=== PATIENT | female | born 1995 | race Caucasian/White ===

== ENCOUNTER 2020-02-10 21:41 | Emergency (ER) | payer OTHER ==
[~2020-02-10] VITALS: Ht 149.9 cm; Wt 64.4 kg
[2020-02-10] MEDS ORDERED: PRENATAL TABLE1 EAC2 (22:09)
== END 2020-02-11 05:18 | disposition home or self-care (01) ==
LOC: ER 21:41
DX: O20.8 Other hemorrhage in early pregnancy (principal); Z3A.01 Less than 8 weeks gestation of pregnancy

== ENCOUNTER 2020-07-26 09:48 | Outpatient (CLI) | payer OTHER ==
[~2020-07-26 09:48] MED LIST: PRENATAL TABLE1 EAC2
== END 2020-07-26 10:27 | disposition home or self-care (01) ==
LOC: NST 09:48
PROVIDERS: ATTEND Obstetrics & Gynecology Maternal & Fetal Medicine
DX: Z34.83 Encounter for supervision of other normal pregnancy, third trimester (principal)

== ENCOUNTER 2020-08-16 12:49 | Outpatient (CLI) | payer OTHER | END 2020-08-16 13:39 | disposition home or self-care (01) | LOC: NST 12:49 | PROVIDERS: ATTEND Obstetrics & Gynecology Maternal & Fetal Medicine | DX: Z34.82 Encounter for supervision of other normal pregnancy, second trimester (principal) ==

== ENCOUNTER 2020-08-21 16:02 | Outpatient (CLI) | payer OTHER | END 2020-08-21 16:45 | disposition home or self-care (01) | LOC: NST 16:02 | PROVIDERS: ATTEND Obstetrics & Gynecology Maternal & Fetal Medicine | DX: Z34.83 Encounter for supervision of other normal pregnancy, third trimester (principal) ==

== ENCOUNTER 2020-08-24 10:37 | Outpatient (CLI) | payer OTHER | END 2020-08-24 10:40 | disposition home or self-care (01) | LOC: NST 10:37 | PROVIDERS: ATTEND Obstetrics & Gynecology Maternal & Fetal Medicine | DX: Z34.82 Encounter for supervision of other normal pregnancy, second trimester (principal) ==

== ENCOUNTER 2020-08-27 09:04 | Outpatient (CLI) | payer OTHER | END 2020-08-27 09:46 | disposition home or self-care (01) | LOC: NST 09:04 | PROVIDERS: ATTEND Obstetrics & Gynecology Maternal & Fetal Medicine | DX: Z34.03 Encounter for supervision of normal first pregnancy, third trimester (principal) ==

== ENCOUNTER 2020-08-30 09:24 | Outpatient (CLI) | payer OTHER | END 2020-08-30 10:07 | disposition home or self-care (01) | LOC: NST 09:24 | PROVIDERS: ATTEND Obstetrics & Gynecology Maternal & Fetal Medicine | DX: Z34.83 Encounter for supervision of other normal pregnancy, third trimester (principal) ==

== ENCOUNTER 2020-09-02 09:42 | Outpatient (CLI) | payer OTHER | END 2020-09-02 11:02 | disposition home or self-care (01) | LOC: NST 09:42 | PROVIDERS: ATTEND Obstetrics & Gynecology Maternal & Fetal Medicine | DX: Z34.03 Encounter for supervision of normal first pregnancy, third trimester (principal) ==

== ENCOUNTER 2020-09-02 11:15 | Inpatient (IN) | payer OTHER ==
[~2020-09-02] VITALS: Ht 149.9 cm; Wt 2.3 kg
[2020-09-04] MEDS ORDERED: INTEGRA F CAPS1 EAC1 (11:14)
== END 2020-09-10 12:36 | disposition home or self-care (01) | DRG 788 ==
LOC: ADM 11:15 → EDSTATUS 11:15 → SURH 09-04 07:00 → O/R 09-04 08:41 → OB/GYN 09-04 08:41 → SURH 09-04 11:15 → OB/GYN 09-04 12:13
PROVIDERS: ADMIT Obstetrics & Gynecology Maternal & Fetal Medicine; ATTEND Obstetrics & Gynecology Maternal & Fetal Medicine
PROC: 4A1HXFZ Monitoring of Products of Conception, Cardiac Rhythm, External Approach (ICD-10-PCS; 2020-09-04)
PROC: 10D00Z1 Extraction of Products of Conception, Low, Open Approach (ICD-10-PCS; principal; 2020-09-04 07:00)
DX: O65.5 Obstructed labor due to abnormality of maternal pelvic organs (principal); O34.593 Maternal care for other abnormalities of gravid uterus, third trimester; Z3A.37 37 weeks gestation of pregnancy; Z37.0 Single live birth; Z20.822 Contact with and (suspected) exposure to COVID-19

== ENCOUNTER 2021-07-11 19:29 | Emergency (ER) | payer OTHER ==
[~2021-07-11] VITALS: Ht 149.9 cm; Wt 64.0 kg
[~2021-07-11 19:29] MED LIST changes: +INTEGRA F CAPS1 EAC1
== END 2021-07-11 23:00 | disposition home or self-care (01) ==
LOC: ER 19:29
DX: D25.9 Leiomyoma of uterus, unspecified (principal); R10.9 Unspecified abdominal pain

== ENCOUNTER 2021-08-04 07:30 | Inpatient (IN) | payer OTHER ==
[~2021-08-04] VITALS: Ht 149.9 cm; Wt 59.0 kg
[2021-08-04] MEDS ORDERED: FOLIC ACID20 MG PO (09:52)
[2021-08-04] MEDS ORDERED: IRON325 MG PO (09:52)
[2021-08-04] MEDS ORDERED: VITAMIN C500 M6 PO (09:52)
== END 2021-08-23 11:14 | disposition home or self-care (01) | DRG 743 ==
LOC: SURH 08-06 07:30 → O/R 08-20 08:50 → OB/GYN 08-20 08:50 → SURH 08-20 14:30 → OB/GYN 08-23 11:14
PROVIDERS: ADMIT Obstetrics & Gynecology; ATTEND Obstetrics & Gynecology
PROC: 0DNW0ZZ Release Peritoneum, Open Approach (ICD-10-PCS; 2021-08-20)
PROC: 0UB90ZZ Excision of Uterus, Open Approach (ICD-10-PCS; principal; 2021-08-20 14:30)
DX: D25.9 Leiomyoma of uterus, unspecified (principal); N73.6 Female pelvic peritoneal adhesions (postinfective); Z20.822 Contact with and (suspected) exposure to COVID-19